=== PATIENT | female | born 1985 | race Two or more races ===

== ENCOUNTER 2024-01-08 15:11 | Emergency (ER) | payer SELFPAY ==
[~2024-01-08] VITALS: Ht 165.1 cm; Wt 56.4 kg
[2024-01-08] MEDS: KETOROLAC TROMETH 60MG/2ML VIAL IM ONE (16:47)
[2024-01-08] MEDS: cefTRIAXone SOD 1,000 MG VL IM ONE (16:47)
[2024-01-08] MEDS ORDERED: NAPR-746 PO (16:48)
[2024-01-08] MEDS ORDERED: PRED20TA2 PO (16:48)
[2024-01-08] MEDS ORDERED: CHL12OR MT (16:48)
[2024-01-08] MEDS ORDERED: AMOX500T3 PO (16:48)
[2024-01-08] MEDS: DexAMETHasone SOD PHOS 10MG/1ML VIAL INJ IM ONE (17:02)
[2024-01-08 17:03] VITALS: BP 149/90; PULSE 103; RESP 18; TEMP 98.9; O2SAT 100
== END 2024-01-08 16:49 | disposition home or self-care (01) ==
LOC: ER 15:11
DX: K08.89 Other specified disorders of teeth and supporting structures (principal); Z79.899 Other long term (current) drug therapy; Z79.1 Long term (current) use of non-steroidal anti-inflammatories (NSAID); Z79.52 Long term (current) use of systemic steroids
CPT/HCPCS: 96372; 99284; J0696; J1100; J1885